=== PATIENT | female | born 1985 | race Caucasian/White ===

== ENCOUNTER 2016-08-29 19:24 | Emergency (ER) | payer MEDICAID, OTHER ==
[~2016-08-29] VITALS: Ht 172.7 cm; Wt 72.0 kg
[~2016-08-29 19:24] MED LIST: ALBU18HF2 ORAL INH; CYCL-375 PO; DIAZ2TAB PO; FAMO20TA8 PO; LEVE250T2 PO; LORA2ORA SL; TRAZ-170 PO
--- OUTSIDE RECORDS SUMMARY | 2016-08-29 19:37 | XMS REPORT | Continuity of Care Document ---
Author Author [facility] Organization [facility] Address Unknown Phone Unavailable Care Team Providers Care Software Intern Name Role Phone Gretchen Davila Primary Care Physician [phone] Source Comments Some departments are not documenting in the electronic medical record. If you do not see the information that you expected, contact Release of Information in the Health Information Management department at [phone] for further assistance in locating additional records.[facility] Active Allergies and Adverse Reactions Allergen Noted Date Severity Reactions Comments Codeine 12/01/2014 Low NAUSEA AND VOMITING [place] 12/01/2014 Low UNKNOWN Tramadol 12/01/2014 Low NAUSEA AND VOMITING, UNKNOWN Current Medications Prescription Sig. Disp. Refills Start End Date Status Date fluticasone-salmeterol Inhale 1 Puff by mouth Active (ADVAIR DISKUS) 100-50 every 12 hours. mcg inhalation disk albuterol (VENTOLIN HFA, Inhale 2 Puffs by mouth Active PROAIR HFA) 90 every 6 hours as needed mcg/actuation inhaler for Wheezing. famotidine (PEPCID) 20 mg Take 20 mg by mouth daily Active tablet as needed. naproxen (NAPROSYN) 500 Take 500 mg by mouth Active mg tablet twice daily with meals. cyclobenzaprine Take 5 mg by mouth three Active (FLEXERIL) 5 mg tablet times daily as needed for Muscle Cramps. hydrOXYzine (VISTARIL) 25 Take 25-50 mg by mouth Active mg capsule every 4 hours as needed for Itching. aspirin/acetaminophen/caf Take 2 Tabs by mouth Active feine(+) (EXCEDRIN three times daily as MIGRAINE) 250/250/65 mg needed. tab traZODone (DESYREL) 50 mg Take 50 mg by mouth at Active tablet bedtime daily. CAFFEINE PO Take 100 mg by mouth Active twice daily with meals. OTC water pill Active Problems Problem Noted Date Asthma Shaking spells Generalized pain Headache Edema Social History Tobacco Use Types Packs/Day Years Used Date Former Smoker Smokeless Tobacco: Chew Current User Alcohol Use Drinks/Week oz/Week Comments No 0 Standard 0.0 drinks or equivalent Last Filed Vital Signs Vital Sign Reading Time Taken Blood Pressure 126/77 12/04/2014 10:25 AM CDT Pulse 105 12/04/2014 10:25 AM CDT Temperature 36.8 C (98.3 F) 12/04/2014 10:25 AM CDT Respiratory Rate - - Height 1.727 m (5' 8") 12/01/2014 3:32 PM CDT Weight 79.833 kg (176 lb) 12/01/2014 3:32 PM CDT Body Mass Index 26.77 12/01/2014 3:32 PM CDT Oxygen Saturation 94% 12/04/2014 10:25 AM CDT Plan of Care Health Maintenance Due Date Last Done Comments Physical (Comprehensive) 02/24/1992 Exam Pertussis Vaccine 02/24/1996 Tetanus Vaccine 2002 Cervical Cancer Screening 2006 Influenza Vaccine 12/23/2016 Results from Last 3 Months Not on file
--- OUTSIDE RECORDS SUMMARY | 2016-08-29 19:38 | XMS REPORT ---
Author Author [employer] Organization Unknown Address Unknown Phone Unavailable Care Team Providers Care Real Estate Professional Name Role Phone UNASSIGNED DOCTOR , DOCTOR PP [phone] Reason For Visit Chief Complaint SEIZURES Social History Functional Status Vital Signs Results Chemistry from 01/18/2016 1:35 AM*COCAINE NEGATIVE (NEG <150 ) *PCP NEGATIVE (NEG <25 ) *CANNABINOIDS POSITIVE A (NEG <50 ) *BENZODIAZEINE NEGATIVE (NEG <200 ) *AMPHETAMINE NEGATIVE (NEG <500 ) *BARBITURATES NEGATIVE (NEG <200 ) *OPIATES NEGATIVE (NEG <300 ) Chemistry from 01/18/2016 1:02 AMSODIUM 142 MMOL/L (136-145 MMOL/L) POTASSIUM 3.3 MMOL/L L (3.5-5.1 MMOL/L) CHLORIDE 106 MMOL/L (98-107 MMOL/L) TCO2 28.7 MMOL/L (21.0-32.0 MMOL/L) *ANION GAP 7.3 MMOL/L L (8.0-16.0 MMOL/L) BUN 8 MG/DL (7-18 MG/DL) CREATININE 0.79 MG/DL (0.55-1.02 MG/DL) *BUN/CREATININE RATIO 10.1 (9.1-17.0 ) GLUCOSE 98 MG/DL (65-99 MG/DL) *GFR EST NON AFR STATELESS >90 ML/MIN *GFR EST AFR AMER >90 ML/MIN CALCIUM 8.7 MG/DL (8.5-10.1 MG/DL) BILIRUBIN TOTAL 0.30 MG/DL (0.20-1.00 MG/DL) TOTAL PROTEIN 7.2 GM/DL (6.4-8.2 GM/DL) ALBUMIN 3.9 GM/DL (3.4-5.0 GM/DL) *GLOBULIN 3.3 GM/DL (2.3-3.5 GM/DL) *A/G RATIO 1.2 MG/DL L (1.5-2.2 MG/DL) ALK PHOS 73 U/L (46-116 U/L) ALT (SGPT) 12 U/L L (16-63 U/L) AST (SGOT) 12 U/L L (15-37 U/L) TSH 3.150 UIU/ML (0.340-4.820 UIU/ML) CK 66 U/L (26-192 U/L) ALCOHOL <0.003 GM/DL ACETAMINOPHEN <2 MCG/ML L (10-30 MCG/ML) SALICYLATE 3.8 MG/DL (2.8-20.0 MG/DL) Hematology from 01/18/2016 1:02 AMWBC 8.0 X10e3/UL (3.6-11.2 X10e3/UL) RBC 4.64 X10e6/UL (3.63-4.92 X10e6/UL) HEMOGLOBIN 13.1 G/DL (11.0-14.3 G/DL) HEMATOCRIT 38.9 % (31.2-41.9 %) *MCV 84.0 FL (79.0-98.0 FL) *MCH 28.2 PG (27.0-33.0 PG) *MCHC 33.5 G/DL (32.0-36.0 G/DL) *RDW 14.4 % (12.3-17.0 %) *RDWSD 43.3 (37.1-47.8 ) PLATELET 277 X10e3/UL (159-386 X10e3/UL) *MPV 7.2 FL L (7.4-10.4 FL) AUTOMATED DIFF PERFORMED SEGS 53.8 % *LYMPHOCYTES 36.9 % *MONOCYTES 7.0 % *EOSINOPHILS 1.4 % *BASOPHILS 0.9 % *ABSOLUTE NEUTROPHILS 4.30 X10e3/UL (1.80-7.80 X10e3/UL) *ABSOLUTE LYMPHOCYTES 2.90 X10e3/UL (1.00-3.00 X10e3/UL) *ABSOLUTE MONOCYTES 0.60 X10e3/UL (0.30-1.00 X10e3/UL) *ABSOLUTE EOSINOPHILS 0.10 X10e3/UL (0.00-0.50 X10e3/UL) *ABSOLUTE BASOPHILS 0.10 X10e3/UL (0.00-0.20 X10e3/UL) Urinalysis from 01/18/2016 1:35 AM* Status: Final Result URINALYSIS Specimen Number: [id number] Sample Collection Date/Time: 01/18/2016 1:35 AM Specimen Source: *URINE COLOR YELLOW (STRAW/YELL/DK YELL ) *URINE APPEARANCE CLEAR (CLEAR ) URINE PH 6.0 (5.0-8.0 ) URINE SPECIFIC GRAVITY 1.020 (<=1.005->=1.030 ) *URINE GLUCOSE NEGATIVE MG/DL (NEGATIVE MG/DL) *URINE BILIRUBIN NEGATIVE (NEGATIVE ) *URINE KETONES TRACE MG/DL A (NEGATIVE MG/DL) *URINE BLOOD NEGATIVE (NEGATIVE ) *URINE PROTEIN NEGATIVE MG/DL (NEGATIVE MG/DL) *URINE UROBILINOGEN 0.2 EU/DL (0.2-1.0 EU/DL) *URINE NITRITES NEGATIVE (NEGATIVE ) *URINE LEUKOCYTES NEGATIVE (NEGATIVE ) UR NEGATIVE (NEGATIVE ) CT Scan from 01/18/2016 1:17 AMCT CEREBRAL W/O CONTRAST History: seizure . Priors: None. Findings: Ventricles and Extra axial spaces: Normal in size and morphology for the patient's age. Hemorrhage: None. Cerebral parenchyma: Normal. Mass effect/midline shift: None. Brainstem/Cerebellum: Normal. Calvarium: Normal. Visualized Paranasal sinuses/Mastoids: Clear. Impression: Unremarkable CT scan of the head. Electronically signed by: Pablito Barcenas MD Dictated: 01/18/2016 08:34 Problems Encounter Diagnosis No relevant problems exist. Encounters Encounter Diagnosis No relevant problems exist. Plan of Care Procedures No relevant procedures performed. Immunizations No immunizations administered or ordered. Hospital Course Hospital Discharge Instructions Allergies, Adverse Reactions, Alerts * Latex Allergy has not been assessed. * IV Contrast Allergy has not been assessed. Medication Medication reconciliation has not been performed.
--- OUTSIDE RECORDS SUMMARY | 2016-08-29 19:38 | XMS REPORT | Continuity of Care Document ---
Author Author [facility] Organization [facility] Address Unknown Phone Unavailable Support Name Relationship Address Phone NADIRA GARZA APRN Caregiver [address] [place] [address] Unavailable DONNA CRABTREE MD Caregiver [address] [place] [address] Unavailable SAVОЛЕГEN Next Of Kin [address] [id number] Insurance Providers Guarantor Doe Ang Address [address] [phone] Email DENIED/NO PORTAL Payer Other A Insurance Policy Number [id number] Subscriber's Name Doe Ang Relationship 18 Self Effective Date 85 Chief Complaint and Reason for Visit Chief Complaint Upper Extremity Problem Reason for Visit Acute carpal tunnel syndrome Problems Past Problems Medical Problem Onset Date Acute carpal tunnel syndrome Unknown Fall Unknown Low back pain Unknown Low back strain Unknown Pseudoseizures Unknown Medications Current Home Medications Medication Dose Units Route Directions Days Qty Instructions Start Date Albuterol Sulfate (Ventolin Hfa 90 Mcg/Actuation) 18 Gm Hfa.aer.ad 1 Puff Oral Inhalation Every 4 Hours as needed for Shortness Of Air/Wheezing 11/20/15 Cyclobenzaprine Hcl 10 Mg Tablet 10 Mg Oral Three Times A Day as needed for Muscle Spasms 10/27/15 Diazepam (Valium) 2 Mg Tablet 2 Mg Oral Every 6 Hours as needed for Prn Orders 10/27/15 Famotidine 20 Mg Tablet 20 Mg Oral Daily 11/20/15 Levetiracetam (Keppra) 250 Mg Tablet 08/26/16 Lorazepam (Lorazepam Intensol) 1 Mg/0.5 Ml Solution 0.5 Ml Sublingual Every 6 Hours as needed for Seizure Activity 10 Milliliter DOSE=1 MG=0.5 ML 11/20/15 Trazodone Hcl 50 Mg Tablet 100 Mg Oral Bedtime 10/27/15 Social History Social History Problem Response Recorded Date/Time Onset Date Status Hx Substance Use No 11/20/2015 2:05pm Not Applicable Not Applicable Hx Alcohol Use Yes 11/20/2015 2:05pm Not Applicable Not Applicable Tobacco Usage smoke 11/12/2015 12:42am Not Applicable Not Applicable Hospital Discharge Instructions No hospital discharge instructions. Plan of Care Discharge Date 08/26/16 3:23pm Disposition 01 DISCHARGED HOME, SELF-CARE Condition at Discharge Stable Instructions/Education Provided Carpal Tunnel Syndrome Exercises (GEN) Carpal Tunnel Syndrome (GEN) Prescriptions See Medication Section Referrals DONNA CRABTREE MD Address: [address] [place] [id number] Additional Instructions/Education follow up with primary care Functional Status No functional status results. Allergies, Adverse Reactions, Alerts Allergen Type Severity Reaction Status Last Updated Codeine Adverse Reaction Unknown VOMITING Active 11/20/15 Hydrocodone Adverse Reaction Unknown "BLACK OUT" Active 11/20/15 Acetaminophen Adverse Reaction Unknown "BLACK OUT" Active 11/20/15 Tramadol Adverse Reaction Unknown VOMITING Active 11/20/15 Immunizations No immunization records. Vital Signs Acute Vital Signs Vital Response Date/Time Temperature (Fahrenheit) 97.2 deg F (96.8 - 99.1) 08/26/2016 3:11pm Temperature (Calculated Celsius) 36.74318 degrees C (36.0 - 37.3) 08/26/2016 3:11pm O2 Sat by Pulse Oximetry 96 % (90 - 100) 08/26/2016 3:11pm Blood Pressure 118/77 mm Hg 08/26/2016 3:11pm Height (Feet) 5 feet 08/26/2016 3:11pm Height (Inches) 8.50 inches 08/26/2016 3:11pm Weight (Kilograms) 71.000 kg 08/26/2016 3:11pm Body Mass Index (BMI) 23.0 08/26/2016 3:11pm Results No known relevant diagnostic tests, laboratory data and/or discharge summary. Procedures No known history of procedures. Encounters Encounter Location Arrival/Admit Date Discharge/Depart Date Attending Provider Departed Emergency Room [facility] 08/26/16 2:47pm 08/26/16 3: 23pm NADIRA GARZA APRN Recent Diagnosis
--- OUTSIDE RECORDS SUMMARY | 2016-08-29 19:39 | XMS REPORT ---
Author Author [employer] Organization Unknown Address Unknown Phone Unavailable Care Team Providers Care Athletic Trainer Name Role Phone MD ROSA, ANTHONY PP [phone] Reason For Visit Chief Complaint SEIZURE Social History Functional Status Vital Signs Results Chemistry from 04/29/2016 9:20 PM*COCAINE NEGATIVE (NEG <150 ) *PCP NEGATIVE (NEG <25 ) *CANNABINOIDS NEGATIVE (NEG <50 ) *BENZODIAZEINE NEGATIVE (NEG <200 ) *AMPHETAMINE NEGATIVE (NEG <500 ) *BARBITURATES NEGATIVE (NEG <200 ) *OPIATES NEGATIVE (NEG <300 ) Chemistry from 04/29/2016 9:12 PMSODIUM 142 MMOL/L (136-145 MMOL/L) POTASSIUM 3.5 MMOL/L (3.5-5.1 MMOL/L) CHLORIDE 104 MMOL/L (98-107 MMOL/L) TCO2 29.2 MMOL/L (21.0-32.0 MMOL/L) *ANION GAP 8.8 MMOL/L (8.0-16.0 MMOL/L) BUN 5 MG/DL L (7-18 MG/DL) CREATININE 0.70 MG/DL (0.55-1.02 MG/DL) *BUN/CREATININE RATIO 7.1 L (9.1-17.0 ) GLUCOSE 98 MG/DL (65-99 MG/DL) *GFR EST NON AFR DOMINICAN >90 ML/MIN *GFR EST AFR AMER >90 ML/MIN CALCIUM 8.7 MG/DL (8.5-10.1 MG/DL) BILIRUBIN TOTAL 0.30 MG/DL (0.20-1.00 MG/DL) TOTAL PROTEIN 7.7 GM/DL (6.4-8.2 GM/DL) ALBUMIN 3.9 GM/DL (3.4-5.0 GM/DL) *GLOBULIN 3.8 GM/DL H (2.3-3.5 GM/DL) *A/G RATIO 1.0 MG/DL L (1.5-2.2 MG/DL) ALK PHOS 90 U/L (46-116 U/L) ALT (SGPT) 20 U/L (16-63 U/L) AST (SGOT) 11 U/L L (15-37 U/L) MAGNESIUM 2.1 MG/DL (1.8-2.4 MG/DL) PHOSPHORUS 4.2 MG/DL (2.6-4.7 MG/DL) AMMONIA 17 umol/L (11-32 umol/L) TEST NEGATIVE (NEGATIVE ) ALCOHOL <0.003 GM/DL ACETAMINOPHEN <2 MCG/ML L (10-30 MCG/ML) SALICYLATE 1.9 MG/DL L (2.8-20.0 MG/DL) Hematology from 04/29/2016 9:12 PMWBC 9.7 X10e3/UL (3.6-11.2 X10e3/UL) RBC 4.65 X10e6/UL (3.63-4.92 X10e6/UL) HEMOGLOBIN 13.2 G/DL (11.0-14.3 G/DL) HEMATOCRIT 39.2 % (31.2-41.9 %) *MCV 84.3 FL (79.0-98.0 FL) *MCH 28.5 PG (27.0-33.0 PG) *MCHC 33.7 G/DL (32.0-36.0 G/DL) *RDW 13.8 % (12.3-17.0 %) *RDWSD 41.1 (37.1-47.8 ) PLATELET 318 X10e3/UL (159-386 X10e3/UL) *MPV 7.1 FL L (7.4-10.4 FL) AUTOMATED DIFF PERFORMED SEGS 58.2 % *LYMPHOCYTES 31.5 % *MONOCYTES 7.9 % *EOSINOPHILS 1.4 % *BASOPHILS 1.0 % *ABSOLUTE NEUTROPHILS 5.70 X10e3/UL (1.80-7.80 X10e3/UL) *ABSOLUTE LYMPHOCYTES 3.10 X10e3/UL H (1.00-3.00 X10e3/UL) *ABSOLUTE MONOCYTES 0.80 X10e3/UL (0.30-1.00 X10e3/UL) *ABSOLUTE EOSINOPHILS 0.10 X10e3/UL (0.00-0.50 X10e3/UL) *ABSOLUTE BASOPHILS 0.10 X10e3/UL (0.00-0.20 X10e3/UL) Urinalysis from 04/29/2016 9:20 PM*URINE COLOR YELLOW (STRAW/YELL/DK YELL ) *URINE APPEARANCE CLEAR (CLEAR ) URINE PH 6.5 (5.0-8.0 ) URINE SPECIFIC GRAVITY <1.005 (<=1.005->=1.030 ) *URINE GLUCOSE NEGATIVE MG/DL (NEGATIVE MG/DL) *URINE BILIRUBIN NEGATIVE (NEGATIVE ) *URINE KETONES NEGATIVE MG/DL (NEGATIVE MG/DL) *URINE BLOOD TRACE-INTACT A (NEGATIVE ) *URINE PROTEIN NEGATIVE MG/DL (NEGATIVE MG/DL) *URINE UROBILINOGEN 0.2 EU/DL (0.2-1.0 EU/DL) *URINE NITRITES NEGATIVE (NEGATIVE ) *URINE LEUKOCYTES NEGATIVE (NEGATIVE ) *MICROSCOPIC EXAM PERFORMED PERFORMED *WBC URINE 0-1 /HPF (0-5 /HPF) *RBC URINE 0-1 /HPF (0-1 /HPF) *SQUAMOUS EP. CELLS FEW /LPF (NEG-FEW /LPF) *BACTERIA FEW /HPF A (NEGATIVE /HPF) CT Scan from 04/29/2016 10:08 PMCT CEREBRAL W/O CONTRAST History: seizure . 31 y/o F presents to ED for seizure described as full body shaking onset just MANUFACTURING MECHANIC. Sister reports the patient was sleeping in a recliner when she began seizing. Pt has a history of seizures onset 1 year ago. Priors: CT head dated 01/18/2016 Findings: Ventricles and Extra axial spaces: Normal in size and morphology for the patient's age. Hemorrhage: None. Cerebral parenchyma: Normal. Mass effect/midline shift: None. Brainstem/Cerebellum: Normal. Calvarium: Normal. Visualized Paranasal sinuses/Mastoids: There is moderate opacification of the bilateral ethmoid sinuses and air-fluid levels within the bilateral maxillary sinuses and inferior right frontal sinus. Impression: No acute intracranial abnormality. Sinusitis. Electronically signed by: Elly Rucker MD Dictated: 04/30/2016 09:54 Problems Encounter Diagnosis No relevant problems exist. Encounters Encounter Diagnosis No relevant problems exist. Plan of Care Procedures No relevant procedures performed. Immunizations No immunizations administered or ordered. Hospital Course Hospital Discharge Instructions Allergies, Adverse Reactions, Alerts * codeine causes unspecified. * Nash causes unspecified. * tramadol causes unspecified. * Latex Allergy has not been assessed. * IV Contrast Allergy has not been assessed. Medication Medication reconciliation has not been performed.
--- OUTSIDE RECORDS SUMMARY | 2016-08-29 19:39 | XMS REPORT | Continuity of Care Document ---
Author Author [employer] Organization [facility] Address Unknown Phone Unavailable Allergies Medications Problems Date Dx Coded Attending Type Code Diagnosis Diagnosed By 05/02/2016 VEGA PAULSON [id number] Nicotine dependence, cigarettes, uncomplicated 05/02/2016 VEGA PAULSON [id number] Unspecified convulsions Procedures Results Test Result Range CBC WITH PLATELET AND DIFFERENTIAL - 04/29/16 21:12 SEGS 58.2 % NRG *BASOPHILS 1.0 % NRG *EOSINOPHILS 1.4 % NRG AUTOMATED DIFF PERFORMED NRG *LYMPHOCYTES 31.5 % NRG *MONOCYTES 7.9 % NRG *ABSOLUTE BASOPHILS 0.10 10*3/uL 0.00- 0.20 *ABSOLUTE EOSINOPHILS 0.10 10*3/uL 0.00- 0.50 *ABSOLUTE LYMPHOCYTES 3.10 10*3/uL 1.00- 3.00 *ABSOLUTE MONOCYTES 0.80 10*3/uL 0.30- 1.00 *ABSOLUTE NEUTROPHILS 5.70 10*3/uL 1.80- 7.80 MPV 7.1 fL 7.4-10.4 PLATELETS 318 10*3/uL 159-386 WBC 9.7 10*3/uL 3.6-11.2 RBC 4.65 3.63-4.92 HEMOGLOBIN 13.2 11.0-14.3 HEMATOCRIT 39.2 % 31.2-41.9 MCV 84.3 fL 79.0-98.0 MCH 28.5 pg 27.0-33.0 MCHC 33.7 32.0-36.0 RDW 13.8 % 12.3-17.0 RDWSD 41.1 37.1-47.8 COMPREHENSIVE METABOLIC PANEL - 04/29/16 21:12 BILIFUBIN TOTAL 0.30 0.20-1.00 TOTAL PROTEIN 7.7 6.4-8.2 ALBUMIN 3.9 3.4-5.0 *GLOBULIN 3.8 2.3-3.5 *A/G RATIO 1.0 1.5-2.2 ALK PHOS 90 U/L 46-116 ALT (SGPT) 20 U/L 16-63 AST (SGOT) 11 U/L 15-37 GFR ESTIMATION - 04/29/16 21:12 *GFR EST NON AFR GUYANESE >90 mL/min NRG *GRFA EST AFR AMER >90 mL/min NRG MAGNESIUM - 04/29/16 21:12 MAGNESIUM 2.1 1.8-2.4 AMMONIA - 04/29/16 21:12 AMMONIA 17 ug/L 11-32 PHOSPHORUS - 04/29/16 21:12 PHOSPHORUS 4.2 2.6-4.7 DRUG SCREEN PLASMA - 04/29/16 21:12 ALCOHOL <0.003 NRG ACETAMINOPHEN <2 10-30 SALICYLATE 1.9 2.8-20.0 TEST - 04/29/16 21:12 TEST NEGATIVE NEGATIVE UR DRUGS OF ABUSE SCREEN - 04/29/16 21:20 *COCAINE NEGATIVE NEG <150 *BARBITURATES NEGATIVE NEG <200 *BENZODIAZEINE NEGATIVE NEG <200 *AMPHETAMINE NEGATIVE NEG <500 *CANNABINOIDS NEGATIVE NEG <50 *OPIATES NEGATIVE NEG <300 *PCP NEGATIVE NEG <25 URINALYSIS (CULTURE PRN) - 04/29/16 21:20 *URINE APPEARANCE CLEAR CLEAR *URINE BILIRUBIN NEGATIVE NEGATIVE *URINE BLOOD TRACE-INTACT NEGATIVE *URINE GLUCOSE NEGATIVE NEGATIVE *URINE KETONES NEGATIVE NEGATIVE *URINE LEUKOCYTES NEGATIVE NEGATIVE *URINE NITRITES NEGATIVE NEGATIVE URINE PH 6.5 5.0-8.0 *URINE PROTEIN NEGATIVE NEGATIVE URINE SPECIFIC GRAVITY <1.005 <=1.005->= 1.030 *URINE UROBILINOGEN 0.2 0.2-1.0 *URINE COLOR YELLOW STRAW/YELL/DK YELL URINE MICROSCOPIC - 04/29/16 21:20 WBC 0-1 /[HPF] 0-5 RBC 0-1 /[HPF] 0-1 MICROSCOPIC EXAM PERFORMED PERFORMED NRG SQUAMOUS EP. CELLS FEW /[LPF] NEG-FEW BACTERIA FEW /[HPF] NEGATIVE Encounters ACCT No. Visit Date/Time Discharge Status Pt. Type Provider Facility Loc./Unit Complaint [id number] 06/25/2015 14:21:52 06/25/2015 23: 59:59 CLS Outpatient Narinder Tobias [id number] 12/26/2014 11:56:28 12/26/2014 23: 59:59 CLS Outpatient Deepti Vizcaino [id number] 12/25/2014 15:35:15 12/25/2014 23: 59:59 CLS Outpatient Narinder Tobias [id number] 09/23/2014 16:49:19 09/23/2014 23: 59:59 CLS Outpatient Theo Swanson [id number] 09/23/2014 13:57:10 09/23/2014 23: 59:59 CLS Outpatient Evie Kulkarni [id number] 09/10/2014 11:19:19 09/10/2014 23: 59:59 CLS Outpatient AnaCosta [id number] 08/29/2014 09:06:43 08/29/2014 23: 59:59 CLS Outpatient Narinder Tobias [id number] 08/14/2014 13:48:20 08/14/2014 23: 59:59 CLS Outpatient Theo Swanson [id number] 08/14/2014 11:38:27 08/14/2014 23: 59:59 CLS Outpatient Narinder Tobias [id number] 08/05/2014 10:21:26 08/05/2014 23: 59:59 CLS Outpatient Luz Erickson
[2016-08-29 19:40] VITALS: Ht 172.7 cm; Wt 72.0 kg
--- NOTE | 2016-08-29 20:26 | ERPDOC ---
Departure Disposition Decision Date: August 29, 2016 Disposition Decision Time: 20:28 (ABBYMARIANO MORA APRN) Disposition: 01 DISCHARGED HOME, SELF-CARE Impression Impression (ABBYMORGANMARIANO Sigala APRN) Impression: Primary Impression: Right wrist pain Severity: Moderate (MARIANO PIERRE APRN) Condition: Stable Seen By: Mid-level only (MARIANO PIERRE APRN) Referrals: DONNA CRABTREE MD (Family) Patient Instructions: Carpal Tunnel Syndrome (GEN) Problems/Meds/Labs Reviewed?: Yes Medications reviewed and manag: Yes (MARIANO PIERRE APRN) Additional Instructions: Wear the splint until follow up. Ice and elevate the wrist as well. Use the [place] as needed for pain. Follow up with your primary care provider for reevaluation as scheduled. Follow up care ordered?: Yes Mental Status: Alert, Oriented (MARIANO PIERRE APRN) Scripts Oxycodone HCl/Acetaminophen (Percocet 5-325 mg Tablet) 5-325 Tablet 1 TAB PO Q6H for PAIN, #12 TAB 0 Refills Prov: ABBYMARIANO MORA APRN 08/29/16 HPI General Chief Complaint: Upper Extremity Pain Stated Complaint: BODY WEAKNESS,ARM NUMBNESS Time Seen by Provider: 20:12 Source: patient Exam Limitations: no limitations (MARIANO PIERRE APRN) Time Seen by Provider: 20:12 (ARA KONG MD) HPI Hand/Forearm Initial Comments She has been having pain in the right forearm for the last week or so with some numbness/tingling in the right hand. She was evaluated at immediate care and diagnosed with carpal tunnel and was given a splint to wear. This has helped with the pain but she is still having some numbness/tingling and also pain at times in the forearm. She has had pain like this in the past when she was diagnosed with a right wrist tendonitis and was given a steroid injection. She does think that this was the reason that she started having seizures a few months later. She has an appointment scheduled with her PCP next week but her pain after work is getting worse. 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 Denies any injury or trauma to the right forearm. Occurred At: home Onset: Gradual Duration: 1 week Severity: moderate Location: right: forearm, wrist Method of Injury: unknown Associated Symptoms: numbness, weakness, DENIES: bruising, pain with extension , pain with flexion, pain with grasp, pallor, red streaks, redness, swelling ( NOLD,MARIANO N COMPUTED TOMOGRAPHY TECHNOLOGIST) Allergies: Coded Allergies: acetaminophen (Verified Adverse Reaction, Unknown, "BLACK OUT", 08/29/16) codeine (Verified Adverse Reaction, Unknown, VOMITING, 08/29/16) hydrocodone (Verified Adverse Reaction, Unknown, "BLACK OUT", 08/29/16) tramadol (Verified Adverse Reaction, Unknown, VOMITING, 08/29/16) Past History Past Medical History Neurological: seizures (NOLD,MARIANO N COMPUTED TOMOGRAPHY TECHNOLOGIST) Surgical History Denies Surgeries (NOLD,MARIANO N COMPUTED TOMOGRAPHY TECHNOLOGIST) Family History Family History: Negative (NOLD,MARIANO N COMPUTED TOMOGRAPHY TECHNOLOGIST) Social History Tobacco Usage: smoke Alcohol Usage: none Drug Usage: none IV Drug Use: No Sexuality: male partner Residence: home (NOMORGAN,MARIANO N COMPUTED TOMOGRAPHY TECHNOLOGIST) Review of Systems Constitutional Constitutional: DENIES: chills, dizziness, fatigue, fever, weakness (NOLD, MARIANO N COMPUTED TOMOGRAPHY TECHNOLOGIST) Musculoskeletal General: pain (right forearm), tenderness (right forearm), DENIES: joint pain, joint swelling, weakness (NOLD,MARIANO N COMPUTED TOMOGRAPHY TECHNOLOGIST) Integumentary Skin: DENIES: color change, lesion, rash (NOLD,MARIANO N COMPUTED TOMOGRAPHY TECHNOLOGIST) Neurological General: numbness (right hand), tingling (right hand), DENIES: weakness (NOLD, MARIANO N COMPUTED TOMOGRAPHY TECHNOLOGIST) Exam General General Nourishment: well nourished, well developed, appears stated age, no acute distress, adult General Body Habitus: well groomed Vital Signs: RN Vital Signs have been reviewed: Yes, Temperature: 97.6, Source : Oral, Heart Rate: 66, Respiratory Rate: 14, BP: 146/68, Pulse Oximetry: 97 Height (Feet): 5 Height (Inches): 8.00 (NOLD,MARIANO N COMPUTED TOMOGRAPHY TECHNOLOGIST) Fastrak Hand/Forearm Hand/Forearm : Upper Extremity: Right Elbow: extension intact, flexion intact, NOT FOUND: deformity, ecchymosis, erythema, swelling, tender Forearm: pronation intact, supination intact, tender (some mild TTP along the radius and ulna but not point tenderness.), NOT FOUND: deformity, ecchymosis , erythema, swelling Wrist: ROM intact, NOT FOUND: deformity, ecchymosis, erythema, snuff box tenderness, swelling, tender, thenar eminence tender Hand: NOT FOUND: deformity, ecchymosis, erythema, swelling, tender Fingers: cap refill <2sec ea digit, soft touch intact, NOT FOUND: deformity , ecchymosis, erythema, impaired abduction, impaired adduction, impaired extension, impaired flexion, impaired grasp, laceration, nail avulsion, rotational deformity, subungual hematoma, swelling, tender Radial Pulse: 2+ (MARIANO PIERRE APRN) Neurologic RN Documented GCS Eye Opening: Verbal: Motor: Total: (MARIANO PIERRE APRN) Differential Diagnoses Considering: Carpal Tunnel Syndrome, Contusion, Dislocation, Sprain, Strain, Vascular Compromise (MARIANO PIERRE APRN) Progress Progress Progress Will go ahead and have her continue to wear the splint. Given her trouble with steroids in the past will hold off on these for now. [place] as needed for pain but follow up next week in clinic for reevaluation. She may need an EMG or eval by ortho. (MARIANO PIERRE APRN) MARIANO PIERRE APRN August 29, 2016 20:26 ARA KONG MD August 30, 2016 01:47
[2016-08-29] MEDS ORDERED: OXYC-46 PO (20:31)
[2016-08-29 20:55] VITALS: BP 128/69; PULSE 66; RESP 14; TEMP 98; O2SAT 96
--- OUTSIDE RECORDS SUMMARY | 2016-08-29 21:08 | XMS REPORT | Continuity of Care Document ---
Author Author [facility] Organization [facility] Address Unknown Phone Unavailable Care Team Providers Care Shrink Pit Operator Name Role Phone Gretchen Davila Primary Care Physician [phone] Source Comments Some departments are not documenting in the electronic medical record. If you do not see the information that you expected, contact Release of Information in the Health Information Management department at [phone] for further assistance in locating additional records.[facility] Active Allergies and Adverse Reactions Allergen Noted Date Severity Reactions Comments Codeine 12/01/2014 Low NAUSEA AND VOMITING [place] 12/01/2014 Low UNKNOWN Tramadol 12/01/2014 Low NAUSEA [...]
--- OUTSIDE RECORDS SUMMARY | 2016-08-29 21:08 | XMS REPORT ---
Author Author [facility] Organization Unknown Address Unknown Phone Unavailable Care Team Providers Care Supervisor Toy Parts Former Name Role Phone UNASSIGNED DOCTOR , DOCTOR PP [phone] Reason For Visit Chief Complaint SEIZURES Social [...] MG/DL (65-99 MG/DL) *GFR EST NON AFR SOUTH KOREAN >90 ML/MIN *GFR EST AFR AMER >90 [...] AM* Status: Final Result URINALYSIS Specimen Number: [id number] Sample Collection Date/Time: 01/18/2016 1:35 AM Specimen [...]
--- OUTSIDE RECORDS SUMMARY | 2016-08-29 21:09 | XMS REPORT | Continuity of Care Document ---
Author Author [facility] Organization [facility] Address Unknown Phone Unavailable Allergies Medications Problems Date Dx Coded Attending Type Code Diagnosis Diagnosed By 05/02/2016 VEGA PAULSON [id number] Nicotine dependence, cigarettes, uncomplicated 05/02/2016 VEGA PAULSON [...] - 04/29/16 21:12 *GFR EST NON AFR MAURITANIAN >90 mL/min NRG *GRFA EST AFR AMER [...] Status Pt. Type Provider Facility Loc./Unit Complaint [id number] 06/25/2015 14:21:52 06/25/2015 23: 59:59 CLS Outpatient Narinder Tobias [id number] 12/26/2014 11:56:28 12/26/2014 23: 59:59 CLS Outpatient Deepti Vizcaino [id number] 12/25/2014 15:35:15 12/25/2014 23: 59:59 CLS Outpatient Narinder Tobias [id number] 09/23/2014 16:49:19 09/23/2014 23: 59:59 CLS Outpatient Theo Swanson [id number] 09/23/2014 13:57:10 09/23/2014 23: 59:59 CLS Outpatient Evie Kulkarni [id number] 09/10/2014 11:19:19 09/10/2014 23: 59:59 CLS Outpatient AnaCosta [id number] 08/29/2014 09:06:43 08/29/2014 23: 59:59 CLS Outpatient Narinder Tobias [id number] 08/14/2014 13:48:20 08/14/2014 23: 59:59 CLS Outpatient Theo Swanson [id number] 08/14/2014 11:38:27 08/14/2014 23: 59:59 CLS Outpatient Narinder Tobias [id number] 08/05/2014 10:21:26 08/05/2014 23: 59:59 CLS Outpatient Luz Erickson
--- OUTSIDE RECORDS SUMMARY | 2016-08-29 21:10 | XMS REPORT ---
Author Author [facility] Organization Unknown Address Unknown Phone Unavailable Care Team Providers Care Sheltered Workshop Executive Director Name Role Phone MD ROSA, ANTHONY PP [phone] Reason For Visit Chief Complaint SEIZURE Social [...] MG/DL (65-99 MG/DL) *GFR EST NON AFR LAO >90 ML/MIN *GFR EST AFR AMER >90 [...] described as full body shaking onset just COMPLIANCE OFFICER. Sister reports the patient was sleeping in [...] Reactions, Alerts * codeine causes unspecified. * [place] causes unspecified. * tramadol causes unspecified. * Latex Allergy has not been assessed. * IV Contrast Allergy has not been assessed. Medication Medication reconciliation has not been performed.
== END 2016-08-29 20:55 | disposition home or self-care (01) ==
LOC: ED 19:24
DX: M79.631 Pain in right forearm (principal); M25.531 Pain in right wrist; R20.0 Anesthesia of skin

== ENCOUNTER 2016-09-05 00:06 | Emergency (ER) | payer MEDICAID ==
[~2016-09-05] VITALS: Ht 172.7 cm; Wt 69.9 kg
[~2016-09-05 00:06] MED LIST changes: -LORA2ORA SL; +OXYC-46 PO
[2016-09-05 00:10] VITALS: Ht 172.7 cm; Wt 69.9 kg
--- OUTSIDE RECORDS SUMMARY | 2016-09-05 00:11 | XMS REPORT | Continuity of Care Document ---
Author Author [facility] Organization [facility] Address Unknown Phone Unavailable Support Name Relationship Address Phone DONNA CRABTREE MD Caregiver [address] [address] Unavailable ARA KONG MD Caregiver [address] [place] [address] Unavailable CAROL ANG Next Of Kin [address] [id number] Insurance Providers Guarantor NataliaSaschaDoe Address [address] [id number] Email DENIED 16 Payer Medicaid Policy Number [id number] Subscriber's Name Doe Ang Relationship 18 Self Effective Date 16 Expiration Date 16 Advance Directives Directive Response Recorded Date/Time Advanced Directives Type None 08/29/16 7:40pm Chief Complaint and Reason for Visit Chief Complaint Upper Extremity Pain Reason for Visit Right wrist pain Problems Past Problems Medical Problem Onset Date Acute carpal tunnel syndrome Unknown Fall Unknown Low back pain Unknown Low back strain Unknown Pseudoseizures Unknown Right wrist pain Unknown Medications Current Home Medications Medication Dose Units Route Directions Days Qty Instructions Start Date Albuterol Sulfate (Ventolin Hfa 90 Mcg/Actuation) 18 Gm Hfa.aer.ad 1 Puff Oral Inhalation Every 4 Hours as needed for Shortness Of Air/Wheezing 11/20/15 Cyclobenzaprine Hcl 10 Mg Tablet 10 Mg Oral Three Times A Day as needed for Muscle Spasm 10/27/15 Diazepam (Valium) 2 Mg Tablet 2 Mg Oral Every 6 Hours as needed for Muscle Spasm 10/27/15 Famotidine 20 Mg Tablet 20 Mg Oral Daily as needed for Acid Reflux 11/20/15 Levetiracetam (Keppra) 250 Mg Tablet 250 Mg Oral Twice A Day 09/07 Oxycodone Hcl/Acetaminophen (Percocet 5-325 Mg Tablet) 5-325 Tablet 1 Tab Oral Every 6 Hours for Pain 12 Tablet 05/08/17 Trazodone Hcl 50 Mg Tablet 50 Mg Oral Bedtime as needed for Insomnia 10/27/15 Social History Social History Problem Response Recorded Date/Time Onset Date Status Chewing Tobacco Status No 08/29/2016 7:56pm Not Applicable Not Applicable Hx Substance Use No 08/29/2016 7:56pm Not Applicable Not Applicable Hx Alcohol Use Yes 08/29/2016 7:56pm Not Applicable Not Applicable Tobacco Usage smoke 11/12/2015 12:42am Not Applicable Not Applicable Query Response Start Date Stop Date Smoking Status Current every day smoker Hospital Discharge Instructions No hospital discharge instructions. Plan of Care Discharge Date 08/29/16 8:55pm Disposition 01 DISCHARGED HOME, SELF-CARE Condition at Discharge Stable Instructions/Education Provided Carpal Tunnel Syndrome (GEN) Prescriptions See Medication Section Referrals DONNA CRABTREE MD Address: [address] [place] [phone] Additional Instructions/Education Wear the splint until follow up. Ice and elevate the wrist as well. Use the [place] as needed for pain. Follow up with your primary care provider for reevaluation as scheduled. Care Plan and Goals Physician Care Plan Problem:Right wrist pain Goal: Follow up with primary care provider Instructions: Take medications and follow care plan as discussed/written Functional Status No functional status results. Allergies, Adverse Reactions, Alerts Allergen Type Severity Reaction Status Last Updated Codeine Adverse Reaction Unknown VOMITING Active 08/29/16 Hydrocodone Adverse Reaction Unknown "BLACK OUT" Active 08/29/16 Acetaminophen Adverse Reaction Unknown "BLACK OUT" Active 08/29/16 Tramadol Adverse Reaction Unknown VOMITING Active 08/29/16 Immunizations Query Response on File Recorded Date/Time Influenza Vaccine Hx NONE 08/29/16 7:56pm Vital Signs Acute Vital Signs Vital Response Date/Time Temperature (Fahrenheit) 97.6 deg F (96.8 - 99.1) 08/29/2016 7:40pm Temperature (Calculated Celsius) 36.70287 degrees C (36.0 - 37.3) 08/29/2016 7:40pm Pulse Rate (adult) 66 bpm (60 - 100) 08/29/2016 7:40pm Respiratory Rate 14 breaths/min (10 - 20) 08/29/2016 7:40pm O2 Sat by Pulse Oximetry 97 % (90 - 100) 08/29/2016 7:40pm Blood Pressure 146/68 mm Hg 08/29/2016 7:40pm Blood Pressure 146/68 mm Hg 08/29/2016 7:40pm Height (Feet) 5 feet 08/29/2016 7:40pm Height (Inches) 8.00 inches 08/29/2016 7:40pm Weight (Kilograms) 72.000 kg 08/29/2016 7:40pm Body Mass Index (BMI) 24.0 08/29/2016 7:40pm Results No known relevant diagnostic tests, laboratory data and/or discharge summary. Procedures No known history of procedures. Encounters Encounter Location Arrival/Admit Date Discharge/Depart Date Attending Provider Departed Emergency Room [facility] 08/29/16 7:24pm 08/29/16 8: 55pm ARA KONG MD Departed Emergency Room [facility] 08/26/16 2:47pm 08/26/16 3: 23pm NADIRA GARZA APRN Recent Diagnosis
--- OUTSIDE RECORDS SUMMARY | 2016-09-05 00:11 | XMS REPORT | Continuity of Care Document ---
Author Author [facility] Organization [facility] Address Unknown Phone Unavailable Care Team Providers Care Conductor And Engineer Name Role Phone Gretchen Davila Primary Care Physician [phone] Source Comments Some departments are not documenting in the electronic medical record. If you do not see the information that you expected, contact Release of Information in the Health Information Management department at [phone] for further assistance in locating additional records.[facility] Active Allergies and Adverse Reactions Allergen Noted Date Severity Reactions Comments Codeine 12/01/2014 Low NAUSEA AND VOMITING [place] 12/01/2014 Low UNKNOWN Tramadol 12/01/2014 Low NAUSEA [...]
--- OUTSIDE RECORDS SUMMARY | 2016-09-05 00:11 | XMS REPORT ---
Author Author [facility] Organization Unknown Address Unknown Phone Unavailable Care Team Providers Care Shop Technician Name Role Phone UNASSIGNED DOCTOR , DOCTOR PP [phone] Reason For Visit Chief Complaint SEIZURES Social [...] MG/DL (65-99 MG/DL) *GFR EST NON AFR DJIBOUTIAN >90 ML/MIN *GFR EST AFR AMER >90 [...] AM* Status: Final Result URINALYSIS Specimen Number: [id number] Sample Collection Date/Time: 01/18/2016 1:35 AM Specimen [...]
--- OUTSIDE RECORDS SUMMARY | 2016-09-05 00:12 | XMS REPORT | Continuity of Care Document ---
Author Author [facility] Organization [facility] Address Unknown Phone Unavailable Allergies Medications Problems Date Dx Coded Attending Type Code Diagnosis Diagnosed By 05/02/2016 VEGA PAULSON [id number] Nicotine dependence, cigarettes, uncomplicated 05/02/2016 VEGA PAULSON [...] - 04/29/16 21:12 *GFR EST NON AFR [place]EL[place] >90 mL/min NRG *GRFA EST AFR AMER [...] Status Pt. Type Provider Facility Loc./Unit Complaint [id number] 06/25/2015 14:21:52 06/25/2015 23: 59:59 CLS Outpatient Narinder Tobias [id number] 12/26/2014 11:56:28 12/26/2014 23: 59:59 CLS Outpatient Deepti Vizcaino [id number] 12/25/2014 15:35:15 12/25/2014 23: 59:59 CLS Outpatient Narinder Tobias [id number] 09/23/2014 16:49:19 09/23/2014 23: 59:59 CLS Outpatient Theo Swanson [id number] 09/23/2014 13:57:10 09/23/2014 23: 59:59 CLS Outpatient Evie Kulkarni [id number] 09/10/2014 11:19:19 09/10/2014 23: 59:59 CLS Outpatient AnaCosta [id number] 08/29/2014 09:06:43 08/29/2014 23: 59:59 CLS Outpatient Narinder Tobias [id number] 08/14/2014 13:48:20 08/14/2014 23: 59:59 CLS Outpatient Theo Swanson [id number] 08/14/2014 11:38:27 08/14/2014 23: 59:59 CLS Outpatient Narinder Tobias [id number] 08/05/2014 10:21:26 08/05/2014 23: 59:59 CLS Outpatient Luz Erickson
--- OUTSIDE RECORDS SUMMARY | 2016-09-05 00:12 | XMS REPORT ---
Author Author [facility] Organization Unknown Address Unknown Phone Unavailable Care Team Providers Care Phosphatic Fertilizer Supervisor Name Role Phone MD ROSA, ANTHONY PP [phone] Reason For Visit Chief Complaint SEIZURE Social [...] MG/DL (65-99 MG/DL) *GFR EST NON AFR AFGHAN >90 ML/MIN *GFR EST AFR AMER >90 [...] described as full body shaking onset just INSPECTOR INTEGRATED CIRCUITS. Sister reports the patient was sleeping in [...] Reactions, Alerts * codeine causes unspecified. * [place] causes unspecified. * tramadol causes unspecified. * Latex Allergy has not been assessed. * IV Contrast Allergy has not been assessed. Medication Medication reconciliation has not been performed.
[2016-09-05] MEDS ORDERED: ORPHENADRINE 60mg/2ml INJECTION IV ONE (00:15)
[2016-09-05] MEDS ORDERED: NORMAL SALINE 1,000 ML IV ONE (00:15)
[2016-09-05] MEDS ORDERED: KETOROLAC 30mg/ml INJECTION IV ONE (00:15)
--- NOTE | 2016-09-05 00:31 | ERPDOC ---
Departure Disposition Decision Date: September 05, 2016 Disposition Decision Time: 02:39 Disposition: 01 DISCHARGED HOME, SELF-CARE Impression Impression Impression: Primary Impression: Myalgia Additional Impression: Pseudoseizure Severity: Severe Condition: Improved Seen By: Physician only Referrals: DONNA CRABTREE MD (Family) Problems/Meds/Labs Reviewed?: Yes Medications reviewed and manag: Yes Additional Instructions: Take your routine medications as prescribed Baclofen 10 mg one tablet 3 times daily as needed for muscle pains or spasms Follow up care ordered?: Yes Mental Status: Alert Scripts Baclofen (Baclofen) 10 Mg Tablet 10 MG PO TID for SPASMS, #30 TAB 0 Refills Prov: DORIE DE JESUS MD 09/05/16 HPI - Psychosocial General Stated Complaint: unconscious Time Seen by MD: 00:09 Source: patient, family Exam Limitations: clinical condition HPI - Psychosocial Initial Comments Patient was brought in by her fianc who lives in a separate town, when the patient was describing earlier in the evening severe body cramps and spasms all over, and then to have lost consciousness for proximally 6-9 minutes while talking on the phone with the fianc. The phone call to, the patient then called her fianc back" had no recollection of the incident," she seems "out of it now." Patient has had all to pull similar episodes in the past, and in fact was diagnosed with pseudoseizures and non-somatic body pains by her doctor in [place]. Patient has recently moved to the [facility], specifically [place], and is now being seen by a physician here. Patient does not have epileptic seizures, and has had normal CT scans lab and EEGs done for similar syndromes in the past Occurred At: home Onset: Rapid Duration: 1/2 hour Allergies: Coded Allergies: acetaminophen (Verified Adverse Reaction, Unknown, "BLACK OUT", 08/29/16) codeine (Verified Adverse Reaction, Unknown, VOMITING, 08/29/16) hydrocodone (Verified Adverse Reaction, Unknown, "BLACK OUT", 08/29/16) tramadol (Verified Adverse Reaction, Unknown, VOMITING, 08/29/16) Past History Patient Medical History Problem List Updates: Pseudoseizures Body pain syndrome Past Medical History Neurological: seizures Psychological: anxiety, depression Surgical History Denies Surgeries Social History Smoking Status: Never smoker Does patient use chewing tobac: No Second Hand Exposure: No Substance Use Type: does not use Alcohol Intake: none Sexuality: male partner Review of Systems Constitutional Constitutional: fatigue, weakness, DENIES: appetite decrease, appetite increase , chills, dizziness, fever ENMT Ears: DENIES: pain Hearing: DENIES: hearing loss, tinnitus Balance: DENIES: vertigo Mouth/Throat: DENIES: change in swallowing, change in voice, hoarsness, painful swallowing, sore throat Cardiovascular Cardiac: DENIES: chest pain, dyspnea on exertion Rhythm/Rate: DENIES: irregular beat, palpitations, tachycardia Vascular: DENIES: pedal edema Pulmonary Respiratory: DENIES: cough, dyspnea, pleuritic chest pain GI Upper Abdomen: DENIES: dysphagia, heartburn/indigestion, nausea, pain, vomiting Lower Abdomen: DENIES: blood in stool, constipation, diarrhea, pain General: DENIES: burning, dysuria, frequency, pain, urgency Musculoskeletal General: DENIES: cramps, joint pain, joint swelling, pain, weakness Integumentary Skin: DENIES: rash, sores Neurological General: DENIES: headache, numbness, tingling, vertigo, weakness Psychiatric Psychiatric: DENIES: anxiety, depression, nervousness Physical Exam General General Nourishment: well nourished, well developed, appears stated age, thin General Body Habitus: disheveled Vitals and Pain Weight: Kilograms: Height (feet): 5 Height (inches): 8.00 Triage Pain Scale: Comments Initially patient appeared to be feigning unresponsiveness, but she reacted with a startle reaction to any sudden touch or loud noise in the room. On sternum command patient was able to open her eyes and converse without difficulty Normal Exams: Head: Normocephalic w/o trauma Eyes: Pupils are PERRLA w/ EOMI, No scleral icterus, irritation, or foreign bodies noted ENMT: No facial trauma, nasal exudates, pharyngeal erythema, or exudates are noted Neck: Full range of motion, without adenopathy, JVD, bruits or thyromegaly Chest/Resp: Clear all roberts, with good airflow, and symmetry bilaterally CV: Regular rate and rhythm, without murmur or gallop, Pulses 2+ all extremities, capillary refill, <2 seconds all ext., no pedal edema noted Abdomen: Bowel sounds positive, soft, non-tender, non-distended, no hepatosplenomegaly, masses or bruits noted Lymphatic: No lymphadenopathy, or lymphedema noted Musculoskeletal: No tenderness, or deformity noted, good range of motion, all extremities Integumentary: No rashes, hives, or bruising noted, hair and nails, without abnormality Neurologic: Patient is alert, and oriented, cranial nerves, motor/sensory/ cerebellar, exams w/o gross deficits, to observation Psychiatric: Patient exhibits, appropriate attention, emotion and affect Progress Results/Orders Orders Procedure Category Date Status Time Iv Lock (Ed Only) EDM 09/05/16 Transmitted 00:15 Cbc W/Auto LAB 09/05/16 Complete Diff-Reflex Manual Cmp - Comprehensive LAB 09/05/16 Complete Metabolic Ua, Dip Wreflex LAB 09/05/16 Complete Microsc & Soft Boarder 00:15 Drug Screen LAB 09/05/16 Complete Urine-Test At [facility] 00:15 Ethanol LAB 09/05/16 Complete Ketorolac (Toradol) PHA 09/05/16 Complete 00:15 Orphenadrine (Norflex) PHA 09/05/16 Complete 00:15 Normal Saline (Normal PHA 09/05/16 Complete Saline Iv) 00:15 Lab Results Laboratory Tests Test 09/05/16 00:27 09/05/16 02:17 White Blood Count 8.7T/MM3 Red Blood Count 5.16M/MM3 Hemoglobin 14.9GM/DL Hematocrit 43.6% Mean Corpuscular Volume 84.5UM3 Mean Corpuscular Hemoglobin 28.9UUG Mean Corpuscular Hemoglobin Concent 34.2GM/DL RDW Standard Deviation 38.2FL Platelet Count 336T/MM3 Mean Platelet Volume 9.3UM3 Immature Granulocyte % (Auto) 0.1% Neutrophils (%) (Auto) 40.6% Lymphocytes (%) (Auto) 48.2% Monocytes (%) (Auto) 7.4% Eosinophils (%) (Auto) 3.0% Basophils (%) (Auto) 0.7% Absolute Immature Granulocyte (auto 0.01T/MM3 Absolute Neutrophils (auto) 3.5T/MM3 Absolute Lymphocytes (auto) 4.2T/MM3 Absolute Monocytes (auto) 0.6T/MM3 Absolute Eosinophils (auto) 0.3T/MM3 Absolute Basophils (auto) 0.1T/MM3 Turbidity < 20 Sodium Level 147MEQ/L Potassium Level 3.4MEQ/L Chloride Level 104MEQ/L Carbon Dioxide Level 27MEQ/L Anion Gap 16MEQ/L Blood Urea Nitrogen 12.0MG/DL Creatinine 0.8MG/DL Glomerular Filtration Rate Calc 84 BUN/Creatinine Ratio 15RATIO Glucose Level 127MG/DL Calculated Osmolality 284MOSM/KG Calcium Level 9.6MG/DL Total Bilirubin 0.30MG/DL Icterus Index < 2 Aspartate Amino Transf (AST/SGOT) 19U/L Alanine Aminotransferase (ALT/SGPT) 28U/L Alkaline Phosphatase 71U/L Total Protein 8.1G/DL Albumin 5.1G/DL Globulin 3.0G/DL Albumin/Globulin Ratio 1.7RATIO Chemistry Specimen Hemolysis < 15 Alcohol, Quantitative <10MG/DL Urine Collection Type Cleancatch-midstream Urine Color Yellow Urine Turbidity Clear Urine pH 6.0 Urine Specific [place] >=1.030 Urine Protein Trace Urine Glucose (UA) Negative Urine Ketones Negative Urine Blood Negative Urine Nitrite Negative Urine Bilirubin Negative Urine Urobilinogen 1.0EU/DL Urine Leukocyte Esterase Negative Urinalysis Comment Microscopic not ind. Urine Opiates Screen NegativeNG/ML Urine Oxycodone Screen PositiveNG/ML Urine Methadone Screen NegativeNG/ML Urine Propoxyphene Screen NegativeNG/ML Urine Barbiturates Screen NegativeNG/ML Urine Tricyclic Antidepressants NegativeNG/ML Urine Phencyclidine Screen NegativeNG/ML Urine Amphetamines Screen NegativeNG/ML Urine Methamphetamines Screen NegativeNG/ML Urine Benzodiazepines Screen NegativeNG/ML Urine Cocaine Screen NegativeNG/ML Urine Cannabinoids Screen NegativeNG/ML Urine Drug Screen Confirmation Sent out Urine Drug Screen Information Pending Medications Current ED Medications Ketorolac Tromethamine (Toradol) 30 mg O ONCE IV Last administered on 00:15; Start 09/05/16 at 00:15; Stop 09/05/16 at 00:18; Status DC Orphenadrine Citrate 60 mg 60 mg O ONCE IV Last administered on 09/05/16 00: 51; Start 09/05/16 at 00:15; Stop 09/05/16 at 00:18; Status DC Sodium Chloride (Normal Saline IV) 1,000 ml @ 0 mls/hr Q0M ONCE IV Last administered on 09/05/16 00:51; Start 09/05/16 at 00:15; Stop 09/05/16 at 00:18 ; Status DC Progress Progress Patient given Toradol, Norflex, and 1 L normal saline IV fluid bolus for perceived dehydration and her "terrible pain everywhere" - to relief CBC - N CMP - N EtOH - N UDS - N UA/P - N DORIE DE JESUS MD September 05, 2016 00:31
[2016-09-05 00:34] LABS: BASOPHILS # (AUTO) 0.1 T/MM3 (0-0.2); BASOPHILS % (AUTO) 0.7 % (0-2); EOSINOPHILS # (AUTO) 0.3 T/MM3 (0-0.5); HCT - HEMATOCRIT 43.6 % (36-46); HGB - HEMOGLOBIN 14.9 GM/DL (12-16); IMMATURE GRANULOCYTE # (AUTO) 0.01 T/MM3 (0.00-0.03); IMMATURE GRANULOCYTE % (AUTO) 0.1 % (0.0-0.5); LYMPHOCYTES # (AUTO) 4.2 T/MM3 (1-4.8); LYMPHOCYTES % (AUTO) 48.2 % (23-45); MEAN CORPUSCULAR HGB 28.9 UUG (26-34); MEAN CORPUSCULAR HGB CONC(MCHC 34.2 GM/DL (31-37); MEAN CORPUSCULAR VOLUME 84.5 UM3 (80-100); MEAN PLATELET VOLUME 9.3 UM3 (9.4-12.4); MONOCYTES # (AUTO) 0.6 T/MM3 (0-0.8); MONOCYTES % (AUTO) 7.4 % (0-9.0); NEUTROPHILS #(AUTO)-ABSOLUTE 3.5 T/MM3 (1.8-7.7); NEUTROPHILS % (AUTO) 40.6 % (33-66); RED BLOOD COUNT 5.16 M/MM3 (4.00-5.20); WBC - WHITE BLOOD COUNT 8.7 T/MM3 (4.5-11.0)
--- OUTSIDE RECORDS SUMMARY | 2016-09-05 00:38 | XMS REPORT | Continuity of Care Document ---
Author Author [facility] Organization [facility] Address Unknown Phone Unavailable Care Team Providers Care Grinder Setup Operator Name Role Phone Gretchen Davila Primary Care Physician [phone] Source Comments Some departments are not documenting in the electronic medical record. If you do not see the information that you expected, contact Release of Information in the Health Information Management department at [phone] for further assistance in locating additional records.[facility] Active Allergies and Adverse Reactions Allergen Noted Date Severity Reactions Comments Codeine 12/01/2014 Low NAUSEA AND VOMITING [place] 12/01/2014 Low UNKNOWN Tramadol 12/01/2014 Low NAUSEA [...]
--- OUTSIDE RECORDS SUMMARY | 2016-09-05 00:39 | XMS REPORT ---
Author Author [facility] Organization Unknown Address Unknown Phone Unavailable Care Team Providers Care Lease Purchase Driver Name Role Phone UNASSIGNED DOCTOR , DOCTOR PP [phone] Reason For Visit Chief Complaint SEIZURES Social [...] MG/DL (65-99 MG/DL) *GFR EST NON AFR TURKISH >90 ML/MIN *GFR EST AFR AMER >90 [...] AM* Status: Final Result URINALYSIS Specimen Number: [id number] Sample Collection Date/Time: 01/18/2016 1:35 AM Specimen [...]
--- OUTSIDE RECORDS SUMMARY | 2016-09-05 00:40 | XMS REPORT ---
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 Sister reports the patient was sleeping in [...] Reactions, Alerts * codeine causes unspecified. * [place] causes unspecified. * tramadol causes unspecified. * Latex Allergy has not been assessed. * IV Contrast Allergy has not been assessed. Medication Medication reconciliation has not been performed.
--- OUTSIDE RECORDS SUMMARY | 2016-09-05 00:40 | XMS REPORT | Continuity of Care Document ---
Author Author [employer] [facility] Address Unknown Phone Unavailable Allergies Medications Problems Date Dx Coded Attending Type Code Diagnosis Diagnosed By 05/02/2016 VEGA PAULSON [id number] Nicotine dependence, cigarettes, uncomplicated 05/02/2016 VEGA PAULSON [...] - 04/29/16 21:12 *GFR EST NON AFR PARAGUAYAN >90 mL/min NRG *GRFA EST AFR AMER [...] Status Pt. Type Provider Facility Loc./Unit Complaint [id number] 06/25/2015 14:21:52 06/25/2015 23: 59:59 CLS Outpatient Narinder Tobias [id number] 12/26/2014 11:56:28 12/26/2014 23: 59:59 CLS Outpatient Deepti Vizcaino [id number] 12/25/2014 15:35:15 12/25/2014 23: 59:59 CLS Outpatient Narinder Tobias [id number] 09/23/2014 16:49:19 09/23/2014 23: 59:59 CLS Outpatient Theo Swanson [id number] 09/23/2014 13:57:10 09/23/2014 23: 59:59 CLS Outpatient Evie Kulkarni [id number] 09/10/2014 11:19:19 09/10/2014 23: 59:59 CLS Outpatient AnaCosta [id number] 08/29/2014 09:06:43 08/29/2014 23: 59:59 CLS Outpatient Narinder Tobias [id number] 08/14/2014 13:48:20 08/14/2014 23: 59:59 CLS Outpatient Theo Swanson [id number] 08/14/2014 11:38:27 08/14/2014 23: 59:59 CLS Outpatient Narinder Tobias [id number] 08/05/2014 10:21:26 08/05/2014 23: 59:59 CLS Outpatient Luz Erickson
[2016-09-05 00:45] LABS: ALBUMIN 5.1 G/DL (3.5-5.0); ALBUMIN/GLOBULIN RATIO 1.7 RATIO (1.1-2.2); ALKALINE PHOSPHATASE 71 U/L (38-126); ALT (SGPT) 28 U/L (9-52); ANION GAP 16 MEQ/L (5-15); AST (SGOT) 19 U/L (14-36); BUN/CREATININE RATIO 15 RATIO (6-26); CALCIUM 9.6 MG/DL (8.4-10.2); CHLORIDE 104 MEQ/L (98-107); CO2 - CARBON DIOXIDE 27 MEQ/L (22-30); CREATININE 0.8 MG/DL (0.7-1.2); ETHANOL <10 MG/DL (<10); GLOMERULAR FILTRATION RATE 84; GLUCOSE 127 MG/DL (65-110); POTASSIUM 3.4 MEQ/L (3.6-5); SODIUM 147 MEQ/L (134-144); TOTAL PROTEIN 8.1 G/DL (6.3-8.2)
[2016-09-05 02:26] LABS: BLOOD, URINE NEGATIVE (NEGATIVE); COLOR,URINE YELLOW (YELLOW); LEUKOCYTE ESTERASE ,URINE NEGATIVE (NEGATIVE); NITRITE,URINE NEGATIVE (NEGATIVE)
[2016-09-05 02:35] LABS: AMPHETAMINE SCREEN,URINE NEGATIVE; BARBITURATE SCREEN,URINE NEGATIVE; BENZODIAZEPINES SCREEN,URINE NEGATIVE; CANNABINOID SCREEN,URINE NEGATIVE; COCAINE SCREEN,URINE NEGATIVE; METHADONE SCREEN, URINE NEGATIVE; METHAMPHETAMINE SCREEN, URINE NEGATIVE; OPIATE SCREEN,URINE NEGATIVE; PHENCYCLIDINE SCREEN,URINE NEGATIVE; TRICYCLIC ANTIDEPRESSANT,URINE NEGATIVE
[2016-09-05] MEDS ORDERED: BACL10TA PO (02:40)
[2016-09-05 02:47] VITALS: BP 98/61; PULSE 66; RESP 18; TEMP 97.7; O2SAT 99
--- NOTE | 2016-09-05 02:47 | NUR ---
DEPART PT GIVEN DI FOR NONEPILEPTIC SEIZURES, BACLOFEN, F/U. RX PROVIDED FOR BACLOFEN. PT VERBALIZES UNDERSTANDING OF DI AND MED. QUESTIONS ASKED/ANSWERED - DENIES FURTHER QUESITONS/NEEDS AT THIS TIME. IV SITE REMOVED. PERSONAL BELONINGS GATHERED PT AMBULATED/ESCORTED TO ED EXIT - GAIT STABLE, NO SIGN OF DISTRESS AT THIS TIME.
== END 2016-09-05 02:47 | disposition home or self-care (01) ==
LOC: ED 00:06
DX: M79.1 Myalgia (principal); R56.9 Unspecified convulsions
CPT/HCPCS: 36415; 80053; 80306; 80307; 81003; 85025; 96361; 96374; 96375; 99284; J1885; J2360; J7030